=== PATIENT | female | born 1995 | race Caucasian/White ===

== ENCOUNTER 2017-07-16 09:59 | Emergency (ER) | payer SELFPAY ==
[2017-07-16] MEDS ORDERED: SODIUM CHLORIDE 0.9% 1000ML 1,000 ML IVS ONE ×2 (10:00→10:15)
[2017-07-16] MEDS ORDERED: EPINEPHrine INJ 0.1 MG/ML 10 ML SYG IV ONE ×2 (10:02→10:18)
[2017-07-16] MEDS ORDERED: NALOXONE HCL INJ 0.4 MG/ML VIAL ONE (10:03)
[2017-07-16] MEDS ORDERED: ATROPINE 1 MG/10 ML SYG IV ONE (10:13)
[2017-07-16] MEDS ORDERED: EPINEPHrine HCL MULTI-DOSE 5 MG in DEXTROSE 5% 250ML 250 ML IV ONE (10:19)
[2017-07-16] MEDS ORDERED: MIDAZOLAM INJ 5 MG/5 ML VIAL ONE (10:24)
[2017-07-16] MEDS ORDERED: DEXTROSE 5% 250ML 250 ML ONE (10:35)
--- NOTE | 2017-07-16 11:03 | ED.PDOC ---
History of Present Illness - General Chief Complaint: Drug or Alcohol Abuse Stated Complaint: Unknown drug overdose Time Seen by Provider: 07/16/17 09:59 Source: family Exam Limitations: clinical condition - History of Present Illness Initial Comments: he patient's 21-year-old female presenting to the emergency room secondary to verdosing on an uncertain substance.the patient and her friend apparently thought they were takingGHB with a crushed and mixed up in a liquid. They took approximately an hour to 1-1/2 hours prior to arrival. Approximately 30 minutes prior to arrival here the patient started becoming confused diaphoretic short of breath and dizzy. She passed out. Her friends through her in the car and started driving her here to the emergency room. By the time of her arrival here her clothes were soaking wet. The patient was unresponsive with a barely palpable pulse. She was pale and breathing approximately 7 times a minute. The patient had oxygen placed and had IV fluids started as well as received a dose of epinephrine in small aliquots to a total of a milligram. This did bring her blood pressures up as well as her heart rate. Her heart rate was initially in the 40s to 50s. She has been oxygenating well since her time of arrival however her mental status has come and gone and ultimately she has been unable to protect her airway. For this reason she was intubated. Additional information is that one of her friends took the same medication has also shown up having shortness of breath confusion diaphoresis and severe agitation also with some tachycardia. Both patients have dilated pupils. Allergies/Adverse Reactions: Allergies Amoxicillin [From Augmentin] Allergy (Verified 09/26/14 16:13) Vomitting Clavulanic Acid [From Augmentin] Allergy (Verified 09/26/14 16:13) Vomitting Home Medications: Ambulatory Orders NK [NK] 09/26/14 Cyclobenzaprine HCl [Flexeril] 10 mg PO TID PRN #20 tab 04/02/15 Ibuprofen 800 mg PO Q8HRS PRN #20 tab 04/02/15 Review of Systems - Review of Systems Review of Systems: 07/16/17 11:02 unable to obtain secondary to patient's condition Past Medical History (General) - Patient Medical History Hx Stroke: No Hx Congestive Heart Failure: No Hx Diabetes: No - Vaccination History Hx Influenza Vaccination: No - Social History Hx Tobacco Use: No - Female History Patient : No Family Medical History - Family History Mother Living Status: Still Living Hx Family;Other: Depression Physical Exam - Physical Exam General Appearance: Other Eye Exam: bilateral normal Ears, Nose, Throat: normal pharynx - Cherelle largely Neck: full range of motion, supple Respiratory: lungs clear, normal breath sounds, no respiratory distress, no accessory muscle use Cardiovascular/Chest: other - bradycardic and regular initially. After oxygenating and improving the blood pressure she is back in a normal sinus rhythm. After additional epinephrine and one round of atropine she isin sinus tachycardia. Peripheral Pulses: radial,right: 1+, radial,left: 1+ Gastrointestinal/Abdominal: non tender, soft Rectal Exam: deferred Back Exam: normal inspection Extremity: normal range of motion - passive, no pedal edema, slow capillary refill - nitially Neurologic: other - the patient iscompletely disoriented initially and comes and goes from consciousness. Difficult to assess otherwise neurologically. Pupils are dilated bilaterally. Skin Exam: diaphoresis, pallor Progress - Progress Progress: 07/16/17 11:06 the patient a 21-year-old female presenting to the emergency room with a drug overdose. The report by friends was that they thought it was GHB. This may be possible but I've never seen GHB do this. Kathi failed to obtain any response whatsoever with this patient. The patient has received a couple liters of IV fluids for the hypotension. She is also on a low dose epinephrine drip for the hypotension and bradycardia. The patient is intubated to 21 cm at the teeth with a #7 tube. She does need a chest x-ray for confirmation as again our medical administrative technician is injured and we have not been able to obtain one. End-tidal CO2's are within normal limits. She is oxygenating well on 35% FiO2. Lungs are clear at this point. The patient has not yet awoken to seymour the vent. She has not yet received any versed. She was completely unresponsive for the intubation. She did receive 1 dose of rocuronium for the intubation and she was clenching her jaw. laboratory work at this point does look reassuring. Of course she does need additional repeat lab work including a formal serological drug screen. We did want to obtain a head CT without contrast to rule out an intracranial hemorrhage however we're unable to do that here at this time due to a lack of a medical administrative technician currently. The patient will be transferred for higher level of care and continued ICU care. She will be receiving doses of Versed if she starts fighting the vent. critical care time spent on this patient excluding not otherwise billable procedures is 1 hour. Intubation was performed under 40 mg of rocuronium. Mother did agree to the intubation. It was explained to her prior. The patient was intubated with a # 7 tube to 21cm at the teeth. - Results/Orders Results/Orders: 07/16/17 10:16 EKG Assessment ONCE 07/16/17 10:19 EPINEPHrine HCL MULTI-DOSE 5 mg Dextrose 5% 250Ml [D5W 250ml] 250 ml IV ONCE 07/16/17 10:30 EKG STAT 07/16/17 10:40 Head [CT] Stat 07/16/17 10:47 FSBS [GLUCOSE, FINGER STICK] Stat 07/16/17 10:49 EKG Assessment ONCE 07/16/17 11:00 EKG STAT Laboratory Results - last 24 hr 07/16/17 07/16/17 10:15 10:15 WBC 8.4 RBC 4.18 L Hgb 13.6 Hct 39.5 MCV 94.6 MCH 32.5 H MCHC 34.4 RDW 13.6 Plt Count 266 MPV 9.4 Absolute Neuts (auto) 6.40 Absolute Lymphs (auto) 1.50 Absolute Monos (auto) 0.40 Absolute Eos (auto) 0.00 Absolute Basos (auto) 0.10 Neutrophils % 75.7 Lymphocytes % 18.2 L Monocytes % 5.2 Eosinophils % 0.2 L Basophils % 0.7 Sodium 140 Potassium 3.7 Chloride 104 Carbon Dioxide 27 Anion Gap 12.7 BUN 9 Creatinine 0.81 BUN/Creatinine Ratio 11.1 Random Glucose 114 H Serum Osmolality 278.9 Calcium 9.8 Total Bilirubin 0.5 AST 16 ALT 19 Alkaline Phosphatase 42 L Creatine Kinase 102 CK-MB (CK-2) 1.2 CK-MB (CK-2) % Not Reportable Troponin I < 0.02 Serum Total Protein 8.2 Albumin 4.8 Globulin 3.4 Albumin/Globulin Ratio 1.4 initial EKG shows a sinus bradycardia at 54 bpm. There is a Q-wave in lead 3. Otherwise no acute ST segment changes concerning for ischemia. Repeat EKG after some atropine and epinephrine shows sinus tachycardia at [address] segment changes concerning for immediate ischemia. There are rate dependent changes. She does have a long corrected QT interval. We did want to obtain a chest x-ray and head CT however areradiology tech was injured approximately 1 hour prior She will need to have the studies done as well as a formalserological drug screen as this is a send out study here. Departure - Departure Clinical Impression: Drug overdose Qualifiers: Encounter type: initial encounter Injury intent: accidental or unintentional Qualified Code(s): T50.901A - Poisoning by unspecified drugs, medicaments and biological substances, accidental (unintentional), initial encounter Disposition: Transfer to Hospital Condition: Serious Referrals: ESTELA OLIVO [Primary Care Provider] - 1-2 Weeks Home Medications: Ambulatory Orders NK [NK] 09/26/14 Cyclobenzaprine HCl [Flexeril] 10 mg PO TID PRN #20 tab 04/02/15 Ibuprofen 800 mg PO Q8HRS PRN #20 tab 04/02/15 Transfer to Outside Facility - Transfer Information Accepting Provider:: dr brannon Accepting Facility: [facility] Reason for Transfer: ICU
[2017-07-16] MEDS ORDERED: ROCURONIUM BROMIDE 10 MG/ML VIAL IV ONE ×2 (11:05→11:46)
--- NOTE | 2017-07-16 11:30 | CT ---
EXAM: CT Head Without Intravenous Contrast CLINICAL HISTORY: The patient is 21 years old and is Female; ams, suspected od TECHNIQUE: Axial computed tomography images of the head/brain without intravenous contrast. COMPARISON: Prior study from 09/26/2014. FINDINGS: BRAIN: The lucas/white matter differentiation is intact. NO intra-or extra-axial fluid collections are seen. No midline shift is identified. No hemorrhage. VENTRICLES: No acute abnormality identified. BONES/JOINTS: Unremarkable. No acute fracture. SOFT TISSUES: The soft tissues of the scalp are unremarkable. SINUSES: The visualized paranasal sinuses are clear. MASTOID AIR CELLS: Unremarkable as visualized. No mastoid effusion. IMPRESSION: NO acute intracranial abnormality identified. No change. Electronically signed by: Raoul Montana MD 07/16/2017 11:29 AM CDT
[2017-07-16] MEDS ORDERED: MORPHINE SULFATE INJ 10 MG/ML VIAL ONE (11:33)
[2017-07-16] MEDS ORDERED: MORPHINE SULFATE INJ 10 MG/ML VIAL IV ONE (11:34)
--- NOTE | 2017-07-16 11:42 | RAD ---
EXAM: XR Chest, 1 View CLINICAL HISTORY: The patient is 21 years old and is Female; s/p intubation TECHNIQUE: Frontal view of the chest. COMPARISON: Prior CT of the chest from 09/26/2014. FINDINGS: LUNGS: Lungs are clear bilaterally. PLEURAL SPACE: Unremarkable. No pneumothorax. HEART: Unremarkable. No cardiomegaly. MEDIASTINUM: Unremarkable. BONES/JOINTS: Unremarkable .No acute fracture noted. TUBES, LINES AND DEVICES: There is an endotracheal tube with its tip projecting approximately 6 cm above the jazzy, just above the thoracic inlet. Electrocardiogram leads are noted. IMPRESSION: There is an endotracheal tube with its tip projecting approximately 6 cm above the jazzy, just above the thoracic inlet. RECOMMENDATIONS: Okay to advance endotracheal tube by 2 to 3 cm. Electronically signed by: Raoul Montana MD 07/16/2017 11:41 AM CDT
[2017-07-16] MEDS ORDERED: ROCURONIUM BROMIDE 10 MG/ML VIAL ONE (11:46)
[2017-07-16 11:55] VITALS: BP 116/98; TEMP 96.3; O2SAT 100
== END 2017-07-16 12:27 | disposition short-term general hospital (02) ==
LOC: ER 09:59
DX: T50.901A Poisoning by unspecified drugs, medicaments and biological substances, accidental (unintentional), initial encounter (principal); R55 Syncope and collapse; R00.1 Bradycardia, unspecified; R41.82 Altered mental status, unspecified; I95.9 Hypotension, unspecified
CPT/HCPCS: 31500; 36415; 36416; 70450; 71045; 80053; 80307; 82550; 82553; 82948; 84484; 85025; 93005; 94002; 94770; J2250; J2270; J2310; J7030; J7060

== ENCOUNTER → 2018-01-13 | Outpatient (CLI) | payer OTHER | LOC: LAB.O 10:44 | DX: F33.2 Major depressive disorder, recurrent severe without psychotic features (principal); F15.20 Other stimulant dependence, uncomplicated; F43.10 Post-traumatic stress disorder, unspecified ==

== ENCOUNTER 2018-07-30 21:36 | Emergency (ER) | payer OTHER ==
--- NOTE | 2018-07-31 00:06 | ED.PDOC ---
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 The search engine optimizer's department reports that she may have placed a foreign object, possibly illegal drugs, into her vagina. The patient currently has no complaints. The SD asked us to perform a foreign body removal from the vagina. Timing/Duration: unsure Severity: mild Improving Factors: nothing Worsening Factors: nothing Associated Symptoms: denies symptoms Allergies/Adverse Reactions: Allergies Amoxicillin [From Augmentin] Allergy (Verified 07/30/18 22:59) Vomitting Clavulanic Acid [From Augmentin] Allergy (Verified 07/30/18 22:59) Vomitting Home Medications: Ambulatory Orders NK 09/26/14 Review of Systems - Review of Systems Constitutional: States: no symptoms reported EENTM: States: no symptoms reported Respiratory: States: no symptoms reported Cardiology: States: no symptoms reported Gastrointestinal/Abdominal: States: no symptoms reported Genitourinary: States: no symptoms reported Musculoskeletal: States: no symptoms reported Skin: States: no symptoms reported Neurological: States: no symptoms reported Endocrine: States: no symptoms reported Hematologic/Lymphatic: States: no symptoms reported Past Medical History (General) - Patient Medical History Hx Seizures: No Hx Stroke: No Hx Dementia: No Hx Asthma: No Hx of COPD: No Hx Cardiac Disorders: No Hx Congestive Heart Failure: No Hx Pacemaker: No Hx Hypertension: No Hx Thyroid Disease: No Hx Diabetes: No Hx Gastroesophageal Reflux: No Hx Renal Disease: No Hx Cancer: No Hx of HIV: No Hx Hepatitis C: No Hx MRSA: No Surgical History: other - Vaccination History Hx Tetanus, Diphtheria Vaccination: No Hx Influenza Vaccination: No Hx Pneumococcal Vaccination: No - Social History Hx Tobacco Use: Yes - Female History Patient : No - Triage Comment ED Triage Comment: unknown LMP Family Medical History - Family History Mother Living Status: Still Living Hx Family;Other: Depression Physical Exam - Physical Exam General Appearance: Alert Eye Exam: bilateral normal Ears, Nose, Throat: normal ENT inspection Neck: non-tender, full range of motion, supple Respiratory: lungs clear, normal breath sounds Cardiovascular/Chest: normal peripheral pulses, regular rate, rhythm, no edema Gastrointestinal/Abdominal: normal bowel sounds, non tender, soft Back Exam: normal inspection, no CVA tenderness, no vertebral tenderness Extremity: normal range of motion, non-tender, normal inspection 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 No foreign object was found. Progress - Progress Progress: 07/31/18 00:08 After an initial discussion with Cruzito Edouard, who also spoke with Moriah Morgan, it was decided that the request for the E.R. here to perform the body cavity search for the SD was innappropriate. It was decided initially to have the patient transferred to a S.A.N.E. nurse so that a proper vaginal exam could be done by a person trained to follow chain of custody. However, it was soon disclosed by the SD that the patient might have put methamphetamines in her vagina that were wrapped in a type of tape that may break open and send her into an overdose. Therefore, Leticia Lynn did the vaginal exam immediately after receiving the court order. The patient also decided to sign a waiver. I performed the rest of the physical exam and it was normal. The patient was eating cookies and was relaxed. The following were labs that were obtained. Laboratory Tests 07/30/18 07/30/18 07/30/18 22:24 22:24 22:24 WBC 9.3 RBC 4.01 L Hgb 12.8 Hct 38.2 MCV 95.1 MCH 31.9 H MCHC 33.5 RDW 13.6 Plt Count 248 MPV 8.7 Absolute Neuts (auto) 6.10 Absolute Lymphs (auto) 2.50 Absolute Monos (auto) 0.50 Absolute Eos (auto) 0.10 Absolute Basos (auto) 0.10 Neutrophils % 65.9 Lymphocytes % 27.0 Monocytes % 5.4 Eosinophils % 0.7 L Basophils % 1.0 Sodium 138 Potassium 3.4 L Chloride 103 Carbon Dioxide 27 Anion Gap 11.4 L BUN 9 Creatinine 0.68 BUN/Creatinine Ratio 13.2 Random Glucose 89 Serum Osmolality 273.8 L Calcium 9.1 Total Bilirubin 0.4 AST 20 ALT 27 Alkaline Phosphatase 38 L Serum Total Protein 6.9 Albumin 3.9 Globulin 3.0 Albumin/Globulin Ratio 1.3 Serum HCG, Qual Urine Opiates Screen Negative Urine Barbiturates Negative Ur Phencyclidine Scrn Negative U Amphetamin/Meth Scrn Positive H U Benzodiazepines Scrn Positive H U Cocaine Metab Screen Negative U Cannabinoids Screen Positive H 07/30/18 22:25 WBC RBC Hgb Hct MCV MCH MCHC RDW Plt Count MPV Absolute Neuts (auto) Absolute Lymphs (auto) Absolute Monos (auto) Absolute Eos (auto) Absolute Basos (auto) Neutrophils % Lymphocytes % Monocytes % Eosinophils % Basophils % Sodium Potassium Chloride Carbon Dioxide Anion Gap BUN Creatinine BUN/Creatinine Ratio Random Glucose Serum Osmolality Calcium Total Bilirubin AST ALT Alkaline Phosphatase Serum Total Protein Albumin Globulin Albumin/Globulin Ratio Serum HCG, Qual Negative Urine Opiates Screen Urine Barbiturates Ur Phencyclidine Scrn U Amphetamin/Meth Scrn U Benzodiazepines Scrn U Cocaine Metab Screen U Cannabinoids Screen Patient stated that she had not done any meth since yesterday and that she had not used benzodiazipines today. She would not offer any more information. This concluded my involvement with this patient. It was recommended that she see a primary care physician tomorrow to follow any possible withdrawal symptoms. Departure - Departure Clinical Impression: Foreign body Disposition: Penitentiary Condition: Good Departure Forms: ED Discharge - Pt. Copy, Patient Portal Self Enrollment Instructions: Polysubstance Abuse (DC) Diet: resume usual diet Activity: increase activity as tolerated Referrals: ESTELA OLIVO [Primary Care Provider] - 1-2 Weeks Home Medications: Ambulatory Orders NK 09/26/14 Additional Instructions: The patient needs to see a primary care physician tomorrow to evaluate if she will be at danger for withdrawal from benzodiazipines, since the patient was not forthcoming about how much and when she used those. She was asymptomatic in the E.R.
[2018-07-31 00:59] VITALS: O2SAT 100
[2018-07-31 01:00] VITALS: BP 114/73; TEMP 98
== END 2018-07-31 00:31 ==
LOC: ER 21:36
DX: T19.2XXA Foreign body in vulva and vagina, initial encounter (principal); F15.90 Other stimulant use, unspecified, uncomplicated; Z87.891 Personal history of nicotine dependence; Z88.1 Allergy status to other antibiotic agents

== ENCOUNTER → 2018-10-07 | Emergency (ER) | payer OTHER ==
[~2018-10-07] MED LIST: POTASSIUM CHLORIDE 20 MEQ TAB PO ONE; SODIUM CHLORIDE 0.9% (FLUSH) 10 ML SYG IV PRN; SODIUM CHLORIDE 0.9% 1000ML 1,000 ML IVS PRN
[2018-10-07 16:42] VITALS: O2SAT 99
--- NOTE | 2018-10-07 16:48 | ED.PDOC ---
History of Present Illness - General Chief Complaint: Drug or Alcohol Abuse Stated Complaint: overdose Time Seen by Provider: 10/07/18 15:05 Source: patient, police Exam Limitations: no limitations - History of Present Illness Initial Comments: Patient presents in police custody after she reported taking GHB before being taken into custody. She denies taking other drugs. No other complaints. Timing/Duration: unsure Severity: mild Improving Factors: nothing Worsening Factors: nothing Associated Symptoms: denies symptoms Allergies/Adverse Reactions: Allergies Amoxicillin [From Augmentin] Allergy (Verified 07/30/18 22:59) Vomitting Clavulanic Acid [From Augmentin] Allergy (Verified 07/30/18 22:59) Vomitting Home Medications: Ambulatory Orders NK 09/26/14 Review of Systems - Review of Systems Constitutional: States: no symptoms reported EENTM: States: no symptoms reported Respiratory: States: no symptoms reported Cardiology: States: no symptoms reported Gastrointestinal/Abdominal: States: no symptoms reported Genitourinary: States: no symptoms reported Musculoskeletal: States: no symptoms reported Skin: States: no symptoms reported Neurological: States: no symptoms reported Endocrine: States: no symptoms reported Hematologic/Lymphatic: States: no symptoms reported Past Medical History (General) - Patient Medical History Hx Seizures: No Hx Stroke: No Hx Dementia: No Hx Asthma: No Hx of COPD: No Hx Cardiac Disorders: No Hx Congestive Heart Failure: No Hx Pacemaker: No Hx Hypertension: No Hx Thyroid Disease: No Hx Diabetes: No Hx Gastroesophageal Reflux: No Hx Renal Disease: No Hx Cancer: No Hx of HIV: No Hx Hepatitis C: No Hx MRSA: No - Vaccination History Hx Tetanus, Diphtheria Vaccination: No Hx Influenza Vaccination: No Hx Pneumococcal Vaccination: No - Social History Hx Tobacco Use: Yes - Female History Patient is a Female of Child Bearing Age (10 -59 yrs old): Yes Patient : No Family Medical History - Family History Mother Living Status: Still Living Hx Family;Other: Depression Physical Exam - Physical Exam General Appearance: Alert, Other - tearful Eye Exam: bilateral normal Ears, Nose, Throat: normal ENT inspection Neck: non-tender, full range of motion, supple Respiratory: lungs clear, normal breath sounds Cardiovascular/Chest: normal peripheral pulses, regular rate, rhythm Gastrointestinal/Abdominal: normal bowel sounds, non tender, soft Back Exam: normal inspection, no CVA tenderness Extremity: normal range of motion, non-tender, normal inspection 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, no motor/sensory deficits, alert, oriented x 3, other - tearful/crying Skin Exam: normal color Lymphatic: no adenopathy Progress - Progress Progress: 10/07/18 16:48 Laboratory Tests 10/07/18 10/07/18 10/07/18 14:36 14:45 14:45 WBC 15.0 H RBC 3.97 L Hgb 13.0 Hct 37.9 MCV 95.5 MCH 32.7 H MCHC 34.3 RDW 13.0 Plt Count 344 MPV 9.5 Absolute Neuts (auto) 8.50 H Absolute Lymphs (auto) 5.10 H Absolute Monos (auto) 1.10 H Absolute Eos (auto) 0.10 Absolute Basos (auto) 0.10 Neutrophils % 56.8 Lymphocytes % 34.1 Monocytes % 7.5 Eosinophils % 0.9 L Basophils % 0.7 PT INR PTT (SP) Sodium 140 Potassium 3.3 L Chloride 104 Carbon Dioxide 24 Anion Gap 15.3 BUN 15 Creatinine 0.94 BUN/Creatinine Ratio 16.0 Random Glucose 109 H Serum Osmolality 280.8 Calcium 9.4 Total Bilirubin 0.6 AST 26 ALT 21 Alkaline Phosphatase 45 Creatine Kinase 454 H* CK-MB (CK-2) 5.5 H* CK-MB (CK-2) % 1.21 Troponin I < 0.02 Serum Total Protein 8.1 Albumin 4.9 Globulin 3.2 Albumin/Globulin Ratio 1.5 Serum HCG, Qual Negative Urine HCG, Qual Cancelled Salicylates Acetaminophen < 10.0 L Ethyl Alcohol 10/07/18 10/07/18 14:45 14:45 WBC RBC Hgb Hct MCV MCH MCHC RDW Plt Count MPV Absolute Neuts (auto) Absolute Lymphs (auto) Absolute Monos (auto) Absolute Eos (auto) Absolute Basos (auto) Neutrophils % Lymphocytes % Monocytes % Eosinophils % Basophils % PT 10.5 INR 1.05 PTT (SP) 25.6 Sodium Potassium Chloride Carbon Dioxide Anion Gap BUN Creatinine BUN/Creatinine Ratio Random Glucose Serum Osmolality Calcium Total Bilirubin AST ALT Alkaline Phosphatase Creatine Kinase CK-MB (CK-2) CK-MB (CK-2) % Troponin I Serum Total Protein Albumin Globulin Albumin/Globulin Ratio Serum HCG, Qual Urine HCG, Qual Salicylates Acetaminophen Ethyl Alcohol 0.00 Patient slept for a few minutes in the E.R. but showed no signs of having taken a sedative/hypnotic such as GHB. While awake, she was crying. Physical exam was normal except patient was in sinus tachycardia while awake. 10/07/18 16:50 Discharged to police custody. Care instructions given. E.R. warnings given. Questions were elicited and answered. Patient voiced understanding and agreement with the plan. Departure - Departure Clinical Impression: Drug abuse Disposition: Discharge to Home or Self Care Condition: Good Departure Forms: ED Discharge - Pt. Copy, Patient Portal Self Enrollment Diet: resume usual diet Activity: increase activity as tolerated Referrals: ESTELA OLIVO [Primary Care Provider] - 1-2 Weeks Home Medications: Ambulatory Orders NK 09/26/14 Additional Instructions: Return to the E.R. for inability to arouse patient or problems with breathing. See a drug abuse counselor as soon as possible.
[2018-10-07 17:23] VITALS: BP 118/77; TEMP 98
== END ==
LOC: ER 14:24
DX: F19.10 Other psychoactive substance abuse, uncomplicated (principal); R00.0 Tachycardia, unspecified; Z87.891 Personal history of nicotine dependence
CPT/HCPCS: 36415; 80053; 80307; 80320; 80329; 81001; 82550; 82553; 84484; 84703; 85025; 85610; 85730; 93005; J7030